=== PATIENT | female | born 2000 | race American Indian/Alaskan Native ===

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

== ENCOUNTER 2020-01-05 05:43 | Emergency (ER) | payer MEDICAID ==
[2020-01-05 05:52] VITALS: BP 143/104; PULSE 73
--- NOTE | 2020-01-05 06:33 | CR ---
PROCEDURE INFORMATION: Exam: XR Left Hand Exam date and time: 01/05/2020 6:15 AM Age: 19 years old Clinical indication: Other: Slammed in car door/pain; Additional info: Possible FX TECHNIQUE: Imaging protocol: XR Left hand. Views: 1 or 2 views. COMPARISON: No relevant prior studies available. FINDINGS: Bones/joints: Normal. Soft tissues: Normal. IMPRESSION: No acute findings.
--- NOTE | 2020-01-05 06:40 | EDM.PDOC ---
ED HPI GENERAL MEDICAL PROBLEM - General Chief Complaint: Upper Extremity Injury/Pain Stated Complaint: HAND BROKEN Time Seen by Provider: 01/05/20 06:25 Source of Information: Reports: Patient, RN, RN Notes Reviewed History Limitations: Reports: No Limitations - History of Present Illness INITIAL COMMENTS - FREE TEXT/NARRATIVE: Patient presents to ER with complaint of left hand pain. States she slammed her hand in a car door about 4:30 this morning. Patient is able to wiggle her fingers. CMS is good. Mild swelling to the top of the left hand. 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 Musculoskeletal 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: None, Other (See Below) Other Musculoskeletal History: LEFT shoulder rotator cuff Neurological 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: None Psychiatric 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: Depression, Suicide Attempt Endocrine/Metabolic 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: None Hematologic 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: Anemia Immunologic 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: None Oncologic (Cancer) 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: None Dermatologic 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: None - Infectious Disease History Infectious Disease 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: None - Past Surgical History Head Surgeries/Procedures: Reports: None Cardiovascular Surgical 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: None Respiratory Surgical 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: None Female Surgical 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: None - History Comment History Comment: Has a PMH of obesity, bipolar disorder, and PTSD. Social & Family History - Family History Family Medical History: Noncontributory - Tobacco Use Smoking Status *Q: Light Tobacco Smoker Years of Tobacco use: 1 Packs/Tins Daily: 0.1 - Caffeine Use Caffeine Use: Reports: None - Recreational Drug Use Recreational Drug Use: No - Living Situation & Occupation Living situation: Reports: with Family, Single Occupation: Student Review of Systems - Review of Systems Review Of Systems: Comprehensive ROS is negative, except as noted in HPI. ED EXAM, GENERAL - Physical Exam Exam: See Below Exam Limited By: No Limitations General Appearance: Alert, WD/WN, No Apparent Distress Eye Exam: Bilateral Eye: EOMI, Normal Inspection Ears: Normal External Exam, Hearing Grossly Normal Nose: Normal Inspection Throat/Mouth: Normal Inspection, Normal Voice, No Airway Compromise Head: Atraumatic, Normocephalic Neck: Normal Inspection, Supple, Non-Tender, Full Range of Motion Respiratory/Chest: No Respiratory Distress, Lungs Clear, Normal Breath Sounds, No Accessory Muscle Use, Chest Non-Tender Cardiovascular: Normal Peripheral Pulses, Regular Rate, Rhythm, No Edema, No Gallop, No JVD, No Murmur, No Rub Peripheral Pulses: 2+: Radial (L), Radial (R) GI/Abdominal: Normal Bowel Sounds, Soft, Non-Tender (Female) Exam: Deferred Rectal (Female) Exam: Deferred Back Exam: Normal Inspection, Full Range of Motion, NT Extremities: Normal Inspection, Normal Range of Motion, Non-Tender, No Pedal Edema, Normal Capillary Refill, Joint Swelling (left hand), Other (left hand pain) Neurological: Alert, Oriented, CN II-XII Intact, Normal Cognition, Normal Gait, Normal Reflexes, No Motor/Sensory Deficits Psychiatric: Normal Affect, Normal Mood Skin Exam: Warm, Dry, Intact, Normal Color, No Rash, Other (swelling to top of left hand) Lymphatic: No Adenopathy Course - Vital Signs Last Recorded V/S: Last Vital Signs Temp 98.4 F 01/05/20 05:51 Pulse 73 01/05/20 05:51 Resp 16 01/05/20 05:51 BP 143/104 H 01/05/20 05:51 Pulse Ox 100 01/05/20 05:51 - Radiology Interpretation Free Text/Narrative:: Left hand xray: PROCEDURE INFORMATION: Exam: XR Left Hand Exam date and time: 01/05/2020 6:15 AM Age: 19 years old Clinical indication: Other: Slammed in car door/pain; Additional info: Possible FX TECHNIQUE: Imaging protocol: XR Left hand. Views: 1 or 2 views. COMPARISON: No relevant prior studies available. FINDINGS: Bones/joints: Normal. Soft tissues: Normal. IMPRESSION: No acute findings. Thank you for allowing us to participate in the care of your patient. Dictated and Authenticated by: Lex Montoya MD 01/05/2020 6:32 AM Central Time ([place] & [place]) See rad report Departure - Departure Time of Disposition: 06:38 Disposition: Home, Self-Care 01 Condition: Good Clinical Impression: Contusion of left hand Qualifiers: Encounter type: initial encounter Qualified Code(s): S60.222A - Contusion of left hand, initial encounter - Discharge Information *PRESCRIPTION DRUG MONITORING PROGRAM REVIEWED*: No *COPY OF PRESCRIPTION DRUG MONITORING REPORT IN PATIENT ABBY: No Instructions: Hand Contusion, [id number] Forms: ED Department Discharge Additional Instructions: May use Tylenol and/or ibuprofen as directed for pain Ice the area as tolerated Follow-up with your primary care provider if no improvement in 2 weeks May use a compression brace if you would like, [id number] from [facility] Sepsis Event Note (ED) - Evaluation Sepsis Screening Result: No Definite Risk - Focused Exam Vital Signs: Vital Signs Temp Pulse Resp BP Pulse Ox 01/05/20 05:51 98.4 F 73 16 143/104 H 100
== END 2020-01-05 06:42 | disposition home or self-care (01) ==
LOC: DL.ED 05:43
DX: S60.222A Contusion of left hand, initial encounter (principal); F17.210 Nicotine dependence, cigarettes, uncomplicated; W23.0XXA Caught, crushed, jammed, or pinched between moving objects, initial encounter
CPT/HCPCS: 73120-LT; 99283-25

== ENCOUNTER 2020-05-29 00:48 | Emergency (ER) | payer MEDICAID ==
[2020-05-29] MEDS ORDERED: Ondansetron 4 MG/2 ML SDV IVPUSH ONE (00:50)
[2020-05-29] MEDS ORDERED: Sodium Chloride 0.9% 1,000 ML IV ONE (01:11)
[2020-05-29 01:29] LABS: ANION GAP 15.7 mEq/L (7-13); CHLORIDE,CL 104 mmol/L (98-107); SODIUM,NA 138 mmol/L (136-145)
--- NOTE | 2020-05-29 01:35 | EDM.PDOC ---
ED HPI GENERAL MEDICAL PROBLEM - General Chief Complaint: Gastrointestinal Problem Stated Complaint: CANT KEEP FOOD DOWN Time Seen by Provider: 05/29/20 01:00 Source of Information: Reports: Patient, RN History Limitations: Reports: No Limitations - History of Present Illness INITIAL COMMENTS - FREE TEXT/NARRATIVE: ED with c/o nausea vomiting x 3 today, one time yesterday. LMP 04/09. Positive at [facility]. Tried to see OB but nothing available. Did not report nausea / vomiting when called for appointment. Dizzy tonight. No fever or chills. no diarrhea. Smell of foods make nausea worse. No morning sickness with first . - Related Data Allergies Allergy/AdvReac Type Severity Reaction Status Date / Time No Known Allergies Allergy Verified 05/29/20 01:04 Home Meds: Home Meds . 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 Musculoskeletal 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: None, Other (See Below) Other Musculoskeletal History: LEFT shoulder rotator cuff Neurological 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: None Psychiatric 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: Depression, Suicide Attempt Endocrine/Metabolic 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: None Hematologic 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: Anemia Immunologic 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: None Oncologic (Cancer) 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: None Dermatologic 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: None - Infectious Disease History Infectious Disease 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: None - Past Surgical History Head Surgeries/Procedures: Reports: None Cardiovascular Surgical 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: None Respiratory Surgical 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: None Female Surgical 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: None - History Comment History Comment: Has a PMH of obesity, bipolar disorder, and PTSD. Social & Family History - Family History Family Medical History: No Pertinent Family History - Tobacco Use Tobacco Use Status *Q: Light Tobacco User Years of Tobacco use: 1 Packs/Tins Daily: 1 - Caffeine Use Caffeine Use: Reports: Soda - Recreational Drug Use Recreational Drug Use: Yes Drug Use in Last 12 Months: Yes Recreational Drug Type: Reports: Marijuana/Hashish Recreational Drug Use Frequency: Binges - Living Situation & Occupation Living situation: Reports: with Family, Single Occupation: Student ED ROS GENERAL - Review of Systems Review Of Systems: Comprehensive ROS is negative, except as noted in HPI. ED EXAM, GI/ABD - Physical Exam Exam: See Below Exam Limited By: No Limitations General Appearance: Alert, No Apparent Distress, Obese Eyes: Bilateral: EOMI Ears: Normal External Exam Nose: Normal Inspection Throat/Mouth: Normal Inspection, Normal Voice Head: Atraumatic, Normocephalic Neck: Normal Inspection Respiratory/Chest: No Respiratory Distress, Lungs Clear, Normal Breath Sounds Cardiovascular: Normal Peripheral Pulses, Regular Rate, Rhythm GI/Abdominal Exam: Normal Bowel Sounds, Soft, Non-Tender Extremities: Normal Inspection Neurological: Alert, Normal Cognition Psychiatric: Normal Affect, Normal Mood Skin Exam: Warm, Dry, Intact, Normal Color Course - Vital Signs Last Recorded V/S: Last Vital Signs Temp 97.8 F 05/29/20 02:17 Pulse 89 05/29/20 02:17 Resp 16 05/29/20 02:17 BP 116/75 05/29/20 02:17 Pulse Ox 99 05/29/20 02:17 - Orders/Labs/Meds Orders: Active Orders 24 hr Category Date Time Status CULTURE URINE [RM] Stat Lab 05/29/20 01:09 Received Labs: Laboratory Tests 05/29/20 05/29/20 05/29/20 Range/Units 00:58 00:58 01:09 WBC 10.3 H (5.0-10.0) 10^3/uL RBC 4.97 (4.2-5.4) 10^6/uL Hgb 13.1 (12.0-16.0) g/dL Hct 38.4 (37.0-47.0) % MCV 77.3 L (80-100) fL MCH 26.4 L (27.0-34.0) pg MCHC 34.1 (33.0-35.0) g/dL Plt Count 351 (150-450) 10^3/uL Neut % (Auto) 61.8 (42.2-75.2) % Lymph % (Auto) 28.3 (20.5-50.1) % Terry % (Auto) 8.1 H (2-8) % Eos % (Auto) 1.4 (1.0-3.0) % Baso % (Auto) 0.4 (0.0-1.0) % Sodium 138 (136-145) mmol/L Potassium 3.7 (3.5-5.1) mmol/L Chloride 104 (98-107) mmol/L Carbon Dioxide 22 (21-32) mmol/L Anion Gap 15.7 H (7-13) mEq/L BUN 9 (7-18) mg/dL Creatinine 0.63 (0.55-1.02) mg/dL Est Cr Clr Drug Dosing 128.17 mL/min Estimated GFR (MDRD) > 60 BUN/Creatinine Ratio 14.3 (No establ ref range) Glucose 107 H (74-99) mg/dL Calcium 8.8 (8.5-10.1) mg/dL Total Bilirubin 0.3 (0.2-1.0) mg/dL AST 41 H (15-37) U/L ALT 53 (14-59) U/L Alkaline Phosphatase 76 (46-116) U/L Total Protein 6.8 (6.4-8.2) g/dL Albumin 3.6 (3.4-5.0) g/dL Globulin 3.2 Albumin/Globulin Ratio 1.1 HCG, Qual Positive Urine Color Yellow (YELLOW) Urine Appearance Turbid (CLEAR) Urine pH 6.0 (5.0-9.0) Ur Specific Ney >= 1.030 (1.005-1.030) Urine Protein Negative (NEGATIVE) Urine Glucose (UA) Negative (NEGATIVE) Urine Ketones Trace H (NEGATIVE) Urine Occult Blood Trace-intact H (NEGATIVE) Urine Nitrite Negative (NEGATIVE) Urine Bilirubin Negative (NEGATIVE) Urine Urobilinogen 1.0 (0.2-1.0) mg/dL Ur Leukocyte Esterase Small H (NEGATIVE) Urine RBC 0-5 /HPF Urine WBC 50-75 H (0-5/HPF) /HPF Ur Epithelial Cells Many H (NOT SEEN) /HPF Amorphous Sediment Few (NOT SEEN) /HPF Urine Bacteria Moderate H (0-FEW/HPF) /HPF Urine Mucus Many H (NOT SEEN) /LPF Meds: Medications Discontinued Medications Generic Name Dose Route Start Last Admin Trade Name Freq PRN Reason Stop Dose Admin Sodium Chloride 1,000 mls @ 999 mls/hr 05/29/20 01:11 05/29/20 01:13 Normal Saline IV 05/29/20 02:11 999 mls/hr .BOLUS ONE Administration Ondansetron HCl 4 mg 05/29/20 00:50 05/29/20 01:03 Zofran IVPUSH 05/29/20 00:51 4 mg ONETIME ONE Administration Departure - Departure Time of Disposition: 02:14 Disposition: Home, Self-Care 01 Condition: Good Clinical Impression: First trimester , Hyperemesis - Discharge Information *PRESCRIPTION DRUG MONITORING PROGRAM REVIEWED*: No *COPY OF PRESCRIPTION DRUG MONITORING REPORT IN PATIENT ABBY: No Instructions: First Trimester of , [id number], Nausea and Vomiting, Adult, [id number] Forms: ED Department Discharge Additional Instructions: Follow up in clinic this week if continued nausea/ vomiting small sips liquid more frequently avoid strong odors over counter Unisom 1/2 tablet at bedtime as needed for nausea or from pharmacy- pyridoxine 10mg every 12 hours as needed for nausea Doxylamine 10mg at bedtime as needed for nausea Sepsis Event Note (ED) - Evaluation Sepsis Screening Result: No Definite Risk - Focused Exam Vital Signs: Vital Signs Temp Pulse Resp BP Pulse Ox 05/29/20 02:17 97.8 F 89 16 116/75 99 05/29/20 00:57 97.1 F 80 18 136/90 100 - My Orders Last 24 Hours: My Active Orders 05/29/20 01:09 CULTURE URINE [RM] Stat - Assessment/Plan Last 24 Hours: My Active Orders 05/29/20 01:09 CULTURE URINE [RM] Stat
[2020-05-29 02:18] VITALS: BP 116/75; PULSE 89
== END 2020-05-29 02:25 | disposition home or self-care (01) ==
LOC: DL.ED 00:48
DX: O21.0 Mild hyperemesis gravidarum (principal); Z72.0 Tobacco use
CPT/HCPCS: 36415; 80053; 81001; 84703; 85025; 87086; 96374; 99284; J2405; J7030; 99283

== ENCOUNTER 2020-11-09 15:30 | Observation (INO) | payer MEDICAID ==
[2020-11-09] MEDS ORDERED: Sodium Chloride 0.9% 10 ML Syringe FLUSH PRN (16:42)
[2020-11-09] MEDS ORDERED: Betamethasone Acetate/Betamethasone Sod Phosphate 30 MG/5 ML MDV IM SCH (16:45)
[2020-11-09] MEDS ORDERED: Sodium Chloride 0.9% 1,000 ML IV SCH ×2 (16:45)
--- NOTE | 2020-11-09 16:51 | PCM.LDHP ---
L&D History of Present Illness - General Date of Service: 11/09/20 Admit Problem/Dx: Patient Status Order with Admit Dx/Problem 11/09/20 16:41 Patient Status [ADT] Routine Admission Diagnosis/Problem Admission Diagnosis/Problem care in third trimester - History of Present Illness Introduction:: 20-year-old at 31w1d presents with increased contractions since 1000 this morning. She states that they were initially 30 minutes apart but then increased in frequency. Currently, they are about 4 minutes apart. She rates them as moderate in intensity. Baby has been active. She has some increase vaginal discharge/leaking today as well. No fever or chills. No new headache or vision changes. Wet prep and urinalysis were unremarkable. Amnisure was negative. We are unable to perform an FFN as patient has had intercourse in the past 24 hours. has been complicated by diet-controlled gestational diabetes, Chlamydia infection (treated) and anemia in . - Related Data Allergies/Adverse Reactions: Allergies Allergy/AdvReac Type Severity Reaction Status Date / Time No Known Allergies Allergy Verified 10/08/20 04:47 Home Medications: Home Meds Pnv,Calcium 72/Iron,Carb/Folic [ Plus Iron Tablet] 1 tab PO DAILY 05/29/20 [History] Ferrous Sulfate [Iron] 325 mg PO DAILY 10/08/20 [History] Ascorbate Calcium [Vitamin C] 500 mg PO DAILY 11/09/20 [History] Past Medical History - Past Health History Medical/Surgical History: Denies Medical/Surgical History HEENT 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: Impaired Vision Cardiovascular 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: None Respiratory 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: None Gastrointestinal 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: None Genitourinary 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: None SEO CONSULTANT 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: , Therapeutic Musculoskeletal 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: None, Other (See Below) Other Musculoskeletal History: LEFT shoulder rotator cuff Neurological 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: None Psychiatric 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: Depression, Suicide Attempt Endocrine/Metabolic 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: Diabetes, Gestational Hematologic 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: Anemia Immunologic 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: None Oncologic (Cancer) 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: None Dermatologic 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: None - Infectious Disease History Infectious Disease 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: None - Past Surgical History Head Surgeries/Procedures: Reports: None Cardiovascular Surgical 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: None Respiratory Surgical 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: None Female Surgical 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: None - History Comment History Comment: Has a PMH of obesity, bipolar disorder, and PTSD. Social & Family History - Family History Family Medical History: No Pertinent Family History - Tobacco Use Tobacco Use Status *Q: Never Tobacco User Second Hand Smoke Exposure: No - Caffeine Use Caffeine Use: Reports: Soda - Recreational Drug Use Recreational Drug Use: No - Living Situation & Occupation Living situation: Reports: with Family, Single Occupation: Student H&P Review of Systems - Review of Systems: Review Of Systems: See Below General: Reports: No Symptoms HEENT: Reports: No Symptoms Pulmonary: Reports: No Symptoms Cardiovascular: Reports: No Symptoms Gastrointestinal: Reports: No Symptoms Musculoskeletal: Reports: No Symptoms Skin: Reports: No Symptoms Psychiatric: Reports: No Symptoms Neurological: Reports: No Symptoms L&D Exam - Exam Exam: See Below - Vital Signs Vital Signs: Last Vital Signs Temp 36.5 C 11/09/20 15:45 Pulse 83 11/09/20 15:45 Resp 20 11/09/20 15:45 BP 115/65 11/09/20 15:45 Pulse Ox Weight: 1012.418 kg - OB Specific Contraction Intensity: Mild to Moderate Movement: Active Heart Tones: Present Heart Tones per Min: 135 Heart Rate (FHR) Variability: Moderate (6-25 bmp) Presentation: Vertex - Mora Score Mora Score Cervix Position: Posterior Mora Score Consistency: Soft Mora Score Effacement: 0-30% Mora Score Dilation: 1-2 cm Mora Score 's Station: -3 Mora Score Total: 3 - Exam General: Alert, Oriented HEENT: Conjunctiva Clear Lungs: Clear to Auscultation, Normal Respiratory Effort Cardiovascular: Regular Rate, Regular Rhythm Genitourinary: Normal external exam Back Exam: Normal Inspection Extremities: Normal Inspection, No Pedal Edema Skin: Warm, Dry, Intact - Patient Data Lab Results Last 24 hrs: Laboratory Results - last 24 hr 11/09/20 11/09/20 Range/Units 15:45 15:58 Urine Color Yellow (YELLOW) Urine Appearance Clear (CLEAR) Urine pH 7.0 (5.0-9.0) Ur Specific [place] 1.020 (1.005-1.030) Urine Protein Negative (NEGATIVE) Urine Glucose (UA) Negative (NEGATIVE) Urine Ketones Negative (NEGATIVE) Urine Occult Blood Negative (NEGATIVE) Urine Nitrite Negative (NEGATIVE) Urine Bilirubin Negative (NEGATIVE) Urine Urobilinogen 0.2 (0.2-1.0) mg/dL Ur Leukocyte Esterase Moderate H (NEGATIVE) Membrane Rupture Negative (NEG) Hal Results Last 24 hrs: Microbiology 11/09/20 15:45 Wet Prep - Final Vagina - Problem List (1) uterine contractions in third trimester, antepartum SNOMED Code(s): 693016796, 645893378 ICD Code: O47.03 - FALSE LABOR BEFORE 37 COMPLETED WEEKS OF GEST, THIRD TRI Status: Acute Current Visit: Yes (2) Gestational diabetes mellitus SNOMED Code(s): 58109436 ICD Code: O24.419 - GESTATIONAL DIABETES MELLITUS IN , UNSP CONTROL Status: Acute Current Visit: Yes (3) Chlamydia infection affecting in third trimester SNOMED Code(s): 2652584163084 ICD Code: O98.813 - OTH MATERNAL INFEC/PARASTC DISEASES COMP PREG, THIRD TRI; A74.9 - CHLAMYDIAL INFECTION, UNSPECIFIED Status: Acute Current Visit: Yes (4) Anemia affecting in third trimester SNOMED Code(s): 37370414, 00353002 ICD Code: O99.013 - ANEMIA COMPLICATING , THIRD TRIMESTER Status: Acute Current Visit: Yes Problem List Initiated/Reviewed/Updated: Yes Orders Last 24hrs: Active Orders 24 hr Category Date Time Status Patient Status [ADT] Routine ADT 11/09/20 16:41 Ordered Communication Order [RC] ROUTINE Care 11/09/20 16:45 Ordered NST [ Non Stress Test] [RC] PER UNIT ROUTINE Care 11/09/20 15:31 Active POC Labs [RC] ASDIRECTED Care 11/09/20 16:41 Ordered Peripheral IV Care [RC] . DIRECTED Care 11/09/20 16:42 Ordered Vital Signs [RC] PER UNIT ROUTINE Care 11/09/20 16:41 Ordered Regular Diet [DIET] Diet 11/09/20 Dinner Ordered CULTURE URINE [RM] Urgent Lab 11/09/20 15:45 Received UA W/MICROSCOPIC [URIN] Urgent Lab 11/09/20 15:45 Results Betamet Acet/Betamet Na Phos [[place] Soluspan 6 MG/ Med 11/09/20 16:45 Ordered ML] 12 mg IM DAILY Sodium Chloride 0.9% @ 125 MLS/HR (1000ml) Med 11/09/20 16:45 Ordered Sodium Chloride 0.9% [Normal Saline] 1,000 ml IV ASDIRECTED Sodium Chloride 0.9% [Normal Saline] 1,000 ml Med 11/09/20 16:45 Ordered IV .BOLUS Sodium Chloride 0.9% [Saline Flush] Med 11/09/20 16:42 Ordered 10 ml FLUSH ASDIRECTED PRN Peripheral IV Insertion Adult [OM.PC] Urgent Oth 11/09/20 16:41 Ordered Resuscitation Status Routine Resus Stat 11/09/20 16:41 Ordered Assessment/Plan Comment:: 20-year-old at 31w1d with contractions 1. Will obtain GBS and STD screen 2. Will give LR 1 liter bolus followed by maintenance fluids at 125 ml/hr 3. Betamethasone for lung maturity 4. Will monitor contractions and repeat cervical exam in 2 hours. If she has made change, will start indomethacin and magnesium with planned transfer to [facility]. This was discussed with the patient and her significant other, and all questions were answered. Dr. Porsha To MD
[2020-11-09] MEDS ORDERED: Lactated Ringers 1,000 ML IV ONE (16:55)
[2020-11-09] MEDS ORDERED: Lactated Ringers 1,000 ML IV SCH (17:00)
[2020-11-09] MEDS ORDERED: Indomethacin 25 MG Cap PO STA (18:34)
[2020-11-09] MEDS ORDERED: Magnesium Sulfate/Water 4 GM in Premix Bag 1 BAG IV ONE (18:35)
[2020-11-09] MEDS ORDERED: Penicillin G Potassium 5 MILLUNITS in Sodium Chloride 0.9% 100 ML IV STA (18:49)
--- NOTE | 2020-11-09 18:59 | PCM.DCSUM1 ---
Discharge Summary - Hospital Course Free Text/Narrative:: 20-year-old admitted for observation for possible contractions/labor Diagnosis: Stroke: No - Discharge Data Discharge Date: 11/09/20 Discharge Disposition: DC/Tfer to Acute Hospital 02 Condition: Good - Referral to Home Health Primary Care Physician: Kendal To MD - Discharge Diagnosis/Problem(s) (1) uterine contractions in third trimester, antepartum SNOMED Code(s): 952964105, 617819444 ICD Code: O47.03 - FALSE LABOR BEFORE 37 COMPLETED WEEKS OF GEST, THIRD TRI Status: Acute Current Visit: Yes (2) Gestational diabetes mellitus SNOMED Code(s): 31319210 ICD Code: O24.419 - GESTATIONAL DIABETES MELLITUS IN , UNSP CONTROL Status: Acute Current Visit: Yes (3) Chlamydia infection affecting in third trimester SNOMED Code(s): 1102212710837 ICD Code: O98.813 - OTH MATERNAL INFEC/PARASTC DISEASES COMP PREG, THIRD TRI; A74.9 - CHLAMYDIAL INFECTION, UNSPECIFIED Status: Acute Current Visit: Yes (4) Anemia affecting in third trimester SNOMED Code(s): 20012886, 37940687 ICD Code: O99.013 - ANEMIA COMPLICATING , THIRD TRIMESTER Status: Acute Current Visit: Yes - Discharge Plan Home Medications: Home Meds Pnv,Calcium 72/Iron,Carb/Folic [ Plus Iron Tablet] 1 tab PO DAILY 05/29/20 [History] Ferrous Sulfate [Iron] 325 mg PO DAILY 10/08/20 [History] Ascorbate Calcium [Vitamin C] 500 mg PO DAILY 11/09/20 [History] - Discharge Summary/Plan Comment DC Time >30 min.: No Discharge Summary/Plan Comment: Patient's cervix was rechecked. Cervical change from 2.5 to 3/3.5 cm noted, 25% effacement, high. Contractions have spaced out to 5-7 minutes apart. Patient feels that these are not any stronger than they were previously. Due to cervical change, [facility] at [facility] in [place] was contacted, and Dr. Carreno agreed to accept transfer. Patient was given 100 mg indomethacin. 4 gram loading dose of IV magnesium sulfate was started for neuroprotection. Patient will also be started on PCN for GBS unknown status. Patient will be transferred via ground ambulance. - General Info Date of Service: 11/09/20 - Patient Data Vitals - Most Recent: Last Vital Signs Temp 35.9 C L 11/09/20 17:30 Pulse 83 11/09/20 15:45 Resp 20 11/09/20 17:30 BP 123/76 11/09/20 17:30 Pulse Ox Weight - Most Recent: 1012.418 kg Lab Results - Last 24 hrs: Laboratory Results - last 24 hr 11/09/20 11/09/20 Range/Units 15:45 15:58 Urine Color Yellow (YELLOW) Urine Appearance Clear (CLEAR) Urine pH 7.0 (5.0-9.0) Ur Specific [place] 1.020 (1.005-1.030) Urine Protein Negative (NEGATIVE) Urine Glucose (UA) Negative (NEGATIVE) Urine Ketones Negative (NEGATIVE) Urine Occult Blood Negative (NEGATIVE) Urine Nitrite Negative (NEGATIVE) Urine Bilirubin Negative (NEGATIVE) Urine Urobilinogen 0.2 (0.2-1.0) mg/dL Ur Leukocyte Esterase Moderate H (NEGATIVE) Urine RBC 0-5 /HPF Urine WBC 10-20 H (0-5/HPF) /HPF Ur Epithelial Cells Many H (NOT SEEN) /HPF Urine Bacteria Many H (0-FEW/HPF) /HPF Urine Mucus Few H (NOT SEEN) /LPF Membrane Rupture Negative (NEG) YESENIA Results - Last 24 hrs: Microbiology 11/09/20 15:45 Wet Prep - Final Vagina Med Orders - Current: Current Medications Betamethasone Acet/Betameth SodPhos (Betamethasone Acetate/Betamethasone Sod Phosphate 30 Mg/5 Ml Mdv) 12 mg IM DAILY REJI Stop: 11/10/20 19:00 Last Admin: 11/09/20 16:58 Dose: 2 ml Documented by: Lactated Ringer's (Ringers, Lactated) 1,000 mls @ 125 mls/hr IV ASDIRECTED REJI Last Admin: 11/09/20 17:30 Dose: 125 mls/hr Documented by: Penicillin G Potassium 5 (millunits/ Sodium Chloride) 100 mls @ 200 mls/hr IV ONETIME STA Stop: 11/09/20 19:18 Magnesium Sulfate (Magnesium Sulfate In Water 20 Gm/500 Ml) 20 gm in 500 mls @ 50 mls/hr IV ASDIRECTED REJI Sodium Chloride (Sodium Chloride 0.9% 10 Ml Syringe) 10 ml FLUSH ASDIRECTED PRN PRN Reason: Keep Vein Open Discontinued Medications Sodium Chloride (Normal Saline) 1,000 mls @ 500 mls/hr IV .BOLUS REJI Sodium Chloride (Normal Saline) 1,000 mls @ 125 mls/hr IV ASDIRECTED REJI Lactated Ringer's (Ringers, Lactated) 1,000 mls @ 999 mls/hr IV .BOLUS ONE Stop: 11/09/20 17:55 Last Admin: 11/09/20 17:00 Dose: 999 mls/hr Documented by: Magnesium Sulfate 4 gm/ Premix 100 mls @ 300 mls/hr IV ONETIME ONE Stop: 11/09/20 18:54 Last Admin: 11/09/20 18:51 Dose: 300 mls/hr Documented by: Indomethacin (Indomethacin 25 Mg Cap) 100 mg PO ONETIME STA Stop: 11/09/20 18:35 Last Admin: 11/09/20 18:49 Dose: 100 mg Documented by:
[2020-11-09] MEDS ORDERED: Magnesium Sulfate/Water 20 GM/500 ML BAG IV SCH (19:00)
[2020-11-09 22:13] VITALS: BP 97/54; PULSE 80
[2020-11-11 11:47] LABS: C.TRACHOMATIS BY TMA Negative (Negative); N.GONORRHOEAE BY TMA Negative (Negative)
== END 2020-11-09 21:07 ==
LOC: DL.OBCHECK 15:30 → DL.OB 16:41
PROVIDERS: ADMIT Family Medicine; ATTEND Family Medicine
DX: O47.03 False labor before 37 completed weeks of gestation, third trimester (principal); O24.419 Gestational diabetes mellitus in pregnancy, unspecified control; O98.813 Other maternal infectious and parasitic diseases complicating pregnancy, third trimester; O99.013 Anemia complicating pregnancy, third trimester; Z3A.31 31 weeks gestation of pregnancy; Z79.899 Other long term (current) drug therapy; Z20.822 Contact with and (suspected) exposure to COVID-19
CPT/HCPCS: 51702; 59025; 81001; 84112; 87077; 87081; 87086; 87186; 87210; 87491; 87591; 96365; 96368; 96372; 96376; A9270-GY; G0378; J0702; J2540; J3475; J7120; U0002

== ENCOUNTER 2020-12-18 16:50 | Inpatient (IN) | payer MEDICAID ==
--- NOTE | 2020-12-18 18:33 | OBOUT ---
DATE: 12/18/2020 This is an NST report. heart monitoring: heart rate baseline 140 BPM, moderate variability, accelerations present, no decelerations noted. [place]: No contractions. Uterine irritability present. INTERPRETATION: Category 1 strip, reactive NST. NST interpretation under advisement of Dr. Preston Montes. [facility] /[id number]
--- NOTE | 2020-12-18 18:59 | HP ---
This is a triage H and P for rule out labor. HISTORY OF PRESENT ILLNESS: The patient is a 20-year-old, 3, para 1 female at 36 weeks 5 days' gestation today, coming in with concerns of vaginal pressure. The patient states that starting last night, she had a "weird feeling" in her pelvis. She reports "I am having the same feelings that I had when I wanted to push with my first child." She also endorses abdominal tightening with these episodes, but no pain or cramping sensations. She also endorses a slight decrease in movement this morning, but states that the baby was very active last night. She denies any associated symptoms of leakage of fluid or vaginal bleeding/discharge. She does endorse that she has been struggling to increase her fluid intake and has only had about 1 L of fluid in the last 12 to 24 hours. In regard to her tightening and pressure sensation, she reports that this is occurring 1 to 2 times every hour. She also has pressure sensation when she closes her legs or moves around which was concerning for her. Of note, the patient has been seen and evaluated quite frequently between clinic as well as for rule out labor. The patient does see and work with Dr. Porsha To in clinic and get twice weekly IV fluid infusions of a liter at a time. This is due to her chronic dehydration. MATERNAL OBSTETRICAL HISTORY: The patient's history is positive for diet- controlled gestational diabetes in current . Anemia of . Chlamydia infection second trimester with treatment to cure completed. History of labor in early third trimester x2. At these evaluations, the patient did receive betamethasone x2 as well as penicillin due to GBS carrier status. At these times, the patient was noted to have cervical dilation to 6 cm, 60%, -3 station. The patient was monitored closely multiple times with concern for labor and was given magnesium and indomethacin to help prevent labor with success. The patient has no longer experienced anymore cervical change and has made it to 36 weeks 5 days' gestation. The patient also has a significant OB history of with delayed hemorrhage requiring Methergine and 2 units of packed red blood cells with subsequent resolution. She has also had 1 spontaneous . SIGNIFICANT MEDICAL HISTORY/ SURGICAL HISTORY: This includes PTSD, bipolar disorder, acetaminophen overdose. FAMILY HISTORY: Please refer back to documentation for significant family history along with social history. OBJECTIVE: Vital Signs: Temperature 97.5 degrees Fahrenheit, blood pressure 136/78, heart rate 64 bpm. Appearance: Sitting comfortably in bed. Not in acute distress. Lungs: Clear to auscultation bilaterally. No increased work of breathing. Heart: Regular rate and rhythm. No murmurs noted. Abdomen: Soft, nontender. Gravid uterus palpated 16 cm above umbilicus. Extremities: Trace pedal edema. No clonus noted. monitoring: heart rate 140 bpm, moderate variability, accelerations present, no decelerations noted. [place]: No contractions visualized on monitor. Uterine irritability present. Interpretation: Reactive NST, category 1 strip. Pelvic exam: Cervix 6 cm dilated, 60% effacement, -3 to ballotable station. ASSESSMENT: The patient is a 20-year-old, 3, para 1 female presenting at 36 weeks 5 days' gestation with concerns of pelvic pressure and decreased movement. The patient is O positive, antibody negative, rubella nonimmune, GBS carrier status. The patient also has a known associated diagnosis of anemia in along with diet-controlled gestational diabetes. PLAN: 1. NSTs to assess status along with expectant labor management. 2. We will monitor for signs of labor. We will perform repeat cervical exam in 2 hours to assess for cervical change/ presentation of labor. The patient was seen and evaluated by myself under advisement of Dr. Preston Montes. Assessment and plan is under advisement of Dr. Montes. [facility] /[id number]
[2020-12-18] MEDS ORDERED: hydrOXYzine HCl 25 MG Tab PO ONE (19:56)
[2020-12-18] MEDS: Lactated Ringers 1,000 ML IV SCH ×2 (20:10→23:12)
[2020-12-18] MEDS ORDERED: Penicillin G Potassium 5 MILLUNITS in Sodium Chloride 0.9% 100 ML IV ONE (20:18)
[2020-12-18] MEDS ORDERED: Tranexamic Acid 1,000 MG in Sodium Chloride 0.9% 100 ML IV PRN (20:30)
[2020-12-18] MEDS ORDERED: Ondansetron 4 MG/2 ML SDV IVPUSH PRN (20:30)
[2020-12-18] MEDS ORDERED: Sodium Chloride 0.9% 10 ML Syringe FLUSH PRN (20:30)
[2020-12-18] MEDS ORDERED: Lactated Ringers 1,000 ML IV SCH (20:30)
[2020-12-18] MEDS ORDERED: Acetaminophen 325 MG Tab PO PRN (20:30)
[2020-12-18] MEDS ORDERED: Lactated Ringers 1,000 ML IV ONE (20:30)
[2020-12-18] MEDS ORDERED: Methylergonovine 0.2 MG/1 ML Amp IM PRN (20:30)
[2020-12-18] MEDS ORDERED: Oxytocin/Normal Saline 30 UNIT/500 ML BAG IV SCH (20:30)
[2020-12-18] MEDS ORDERED: Carboprost Tromethamine 250 MCG/1 ML Amp IM PRN (20:30)
[2020-12-18] MEDS ORDERED: Misoprostol 400 MCG (4 X 100 MCG TAB) RECTAL PRN (20:30)
[2020-12-18] MEDS ORDERED: Lidocaine 1% 30 ML SDV INJECT PRN (20:30)
--- NOTE | 2020-12-18 20:44 | PN ---
DATE: 12/18/2020 SUBJECTIVE: This is a 20-year-old patient at 36 weeks 5 days' gestation, admitted under observation for monitoring of possible labor. The patient reports increasing intensity and frequency of contractions now noted to be every 1 to 3 minutes with increase in intensity. The patient denies any leakage of fluid or vaginal bleeding. The patient states she is getting more uncomfortable and was trying the birthing ball and was requesting to try sitting in the tub. OBJECTIVE: Appearance: Moderately uncomfortable with contractions, but otherwise not in distress. Cervical: 6 cm, 75%, -3. Heart Monitoring: heart rate 130 bpm., moderate variability, excels, no decels. [place]: Contractions noted every 1 to 3 minutes, increase in intensity and frequency. Interpretation: Category 1 strip. ASSESSMENT: The patient is a 20-year-old female presenting with early labor. PLAN: 1. Will admit patient to Labor and Delivery for further management of early labor. 2. We will give patient 1 L of fluid bolus along with a dose of Vistaril. 3. Due to GBS positive status, we will start penicillin at this time. 4. We will admit patient for further evaluation and monitoring of routine labor. The patient was seen and evaluated by myself under advisement of Dr. Preston Montes. Assessment and plan is under advisement of Dr. Montes. [facility] /[id number]
[2020-12-18] MEDS ORDERED: fentaNYL 100 MCG/2 ML SDV ONE (21:26)
[2020-12-18] MEDS ORDERED: EPINEPHrine 1 MG/ML SDV ONE ×2 (21:27→21:28)
[2020-12-18] MEDS ORDERED: Sodium Chloride 0.9% 20 ML SDV ONE (21:28)
[2020-12-18] MEDS ORDERED: Sodium Bicarbonate 4.2% 2.5 MEQ/5 ML SDV ONE ×2 (21:28)
[2020-12-18] MEDS ORDERED: fentaNYL 100 MCG/2 ML SDV ITHECAL ONE (21:28)
--- NOTE | 2020-12-18 21:55 | PCM.SN.2 ---
- Free Text/Narrative Note: Intrathecal. Sitting position, sterile pree and drape. 1% lidocaine w bicarb for skinwheal to L2 L3 interspace, introducer, 24 ga pencan x 1. Pos CSF, neg heme neg parasthesai. 1:1000 pf epi, 20 mcg pf sufenta, 30 mcg pf fentanyl, 0.4 ml pf NS and 6 mg of 0.75% pf marcaine injected after CSF aspiration. Pt to L lateral position after 30 seconds. Procedure time 2125 to 2200
[2020-12-18] MEDS: Penicillin G Potassium 3 MILLUNITS in Sodium Chloride 0.9% 100 ML IV SCH (23:40)
[2020-12-19] MEDS ORDERED: Oxytocin/Normal Saline 30 UNIT/500 ML BAG IV SCH (00:15)
[2020-12-19] MEDS ORDERED: fentaNYL 100 MCG/2 ML SDV ONE (03:35)
[2020-12-19] MEDS ORDERED: Sodium Bicarbonate 4.2% 2.5 MEQ/5 ML SDV ONE ×2 (03:36→03:37)
[2020-12-19] MEDS ORDERED: fentaNYL 100 MCG/2 ML SDV ITHECAL ONE (03:37)
[2020-12-19] MEDS ORDERED: Sodium Chloride 0.9% 20 ML SDV ONE (03:37)
[2020-12-19] MEDS: Penicillin G Potassium 3 MILLUNITS in Sodium Chloride 0.9% 100 ML IV SCH (03:39)
--- NOTE | 2020-12-19 03:59 | PCM.SN.2 ---
- Free Text/Narrative Note: Intrathecal. Sitting position, sterile prep and drape. 1% lidocaine w bicarb for skinwheal to L2 L3 interspace, introducer, 24 ga pencan x 1. Pos CSF, neg heme neg parasthesia. 20 mcg pf sufenta, 30 mcg pf fentanyl, 0.4 ml pf NS and 6 mg of 0.75% pf marcaine injected after CSF aspiration. Pt to L lateral position af ter 30 seconds. Procedure time 0330 to 0400
[2020-12-19] MEDS ORDERED: Oxytocin 10 Units/1 ML SDV IM PRN (06:25)
[2020-12-19] MEDS ORDERED: Simethicone 80 MG Tab.Chew PO PRN (06:25)
[2020-12-19] MEDS ORDERED: Tranexamic Acid 1,000 MG in Sodium Chloride 0.9% 100 ML IV PRN (06:25)
[2020-12-19] MEDS ORDERED: Acetaminophen 325 MG Tab PO SCH (06:25)
[2020-12-19] MEDS ORDERED: Misoprostol 400 MCG (4 X 100 MCG TAB) RECTAL PRN (06:25)
[2020-12-19] MEDS ORDERED: Benzocaine/Menthol 20%-0.5% Spray 78 GM Cannister TOP PRN (06:25)
[2020-12-19] MEDS ORDERED: Ibuprofen 800 MG Tab PO SCH (06:25)
[2020-12-19] MEDS ORDERED: Sodium Chloride 0.9% 10 ML Syringe FLUSH PRN (06:25)
[2020-12-19] MEDS ORDERED: Carboprost Tromethamine 250 MCG/1 ML Amp IM PRN (06:25)
[2020-12-19] MEDS: Docusate Sodium 100 MG Cap PO PRN ×2 (08:36→21:22)
[2020-12-19] MEDS: Ferrous Sulfate 325 MG Tab PO SCH (08:36)
[2020-12-19] MEDS: Prenatal Multivitamin with Calcium/Folic Acid/Iron Tab PO SCH (08:36)
--- NOTE | 2020-12-19 09:16 | DEL ---
DATE: 12/19/2020 The patient is a 20-year-old 3, para 1 female who presented to Labor and Delivery Triage on 12/18/2020 at 36 weeks 5 days gestation with concerns of lower abdominal pain and tightening along with decreased movement. The patient was noted to be experiencing frequent contractions and was given Vistaril and IV fluids to help with onset of contractions. Please see OB Triage/H and P note for further details. After monitoring and initial management, patient was noted to have increasing frequency and intensity of contractions. The patient was admitted to the OB floor for expectant labor management. The patient is GBS positive, so penicillin was initiated. The patient progressed through labor routinely. The patient is also gestational diabetic and is diet controlled. Once the patient was noted to be in active labor, hourly glucose checks were completed. The patient was noted to progress as expected and subsequently reached a point where she desired intrathecal which was placed. After intrathecal was placed, contractions were noted to space out occurring every 4 to 5 minutes. heart tracing indicated the baby tolerated all forms of intervention well. Pitocin was then started at a rate of 2 with increase by 2 every 30 minutes with max of 20. The patient progressed and was noted to have SROM with clear fluid at 0330 hours on 12/19/2020. The patient started feeling increased pressure with intensity of contractions as intrathecal wore off. Anesthesia was notified and returned to place a second intrathecal/saddle block. The patient progressed through labor expectantly and was noted to be complete at 0450 hours. The patient pushed effectively x3 with initial delivery at 0514 hours. Head presented and was delivered in the LUCY position. Body was delivered quickly thereafter. Delayed cord clamping was practiced and initial scores were 8 and 9 at one and five minutes respectively. The patient was brought to mother's abdomen/chest to initiate bonding. With uterine massage and gentle traction, placenta delivered subsequently thereafter. Postprocedure vaginal exam indicated small bilateral labial lacerations. Direct pressure was utilized for hemostasis. No perineal lacerations or cervical lacerations were noted. Vaginal wall lacerations were not repaired as they remained hemostatic with excellent reapproximation of anatomy. Cord blood was drawn and collected for cord studies. The patient was cleaned and monitored immediately post delivery. Delivery was successful with production of an early term female born at 36 weeks 6 days' gestation via normal spontaneous vaginal delivery to a 20-year-old 3, para 1, now 2 female. Initial scores were 8 and 9 at one and five minutes respectively. weight was 3830 g. Maternal OB history of gestational diabetes, diet controlled, which remained controlled throughout labor. GBS positive status was adequately treated x3 of penicillin prior to SROM. The patient and mother were noted to be doing well immediately after delivery. EBL 150 mL. POSTPROCEDURE DIAGNOSES: 1. Status post normal spontaneous vaginal delivery with production of early term female infant at 36 weeks 6 days' gestation. 2. 3, now para 2. 3. score 8 and 9 at one and five minutes respectively. 4. GBS positive, adequately treated with penicillin x3. 5. Gestational diabetes, diet controlled. 6. ABO blood type O positive, antibody negative, rubella nonimmune. PLAN: 1. Continue routine cares. 2. We will continue to monitor clinically and closely. 3. The patient does have a history of delayed hemorrhage necessitating methargen and 2 units of packed red blood cells. We will monitor very closely after delivery. Delivery was completed by myself and Dr. Preston Montes. Delivery summary is under advisement of Dr. Montes. [facility] /[id number]
[2020-12-19] MEDS: Acetaminophen 325 MG Tab PO SCH ×2 (14:28→21:22)
[2020-12-19] MEDS: Ibuprofen 800 MG Tab PO SCH (16:25)
[2020-12-20] MEDS: Ibuprofen 800 MG Tab PO SCH ×3 (00:42→17:02)
[2020-12-20] MEDS: Acetaminophen 325 MG Tab PO SCH ×4 (06:30→20:40)
[2020-12-20] MEDS: Prenatal Multivitamin with Calcium/Folic Acid/Iron Tab PO SCH (09:03)
[2020-12-20] MEDS: Ferrous Sulfate 325 MG Tab PO SCH (09:03)
--- NOTE | 2020-12-20 10:28 | PN ---
DATE: 12/20/2020 SUBJECTIVE: The patient is a 20-year-old 3, now para 2-0-1-2 female, who delivered via at 36 weeks 6 days' gestation on 12/19/2020. The patient also has significant obstetrical conditions, including GBS positive status, adequately treated during delivery; gestational diabetes, diet controlled, has been asymptomatic; and a history of hemorrhage in prior , which has not occurred, and the patient has been asymptomatic throughout hospital course. The patient states she is feeling well but "achy." She does endorse moderate cramping, especially with . She states she is overall well, has mild lochia and bleeding. She denies fevers, chills, lightheadedness, dizziness, palpitations, difficulty breathing, or lower extremity pain or tenderness. She states that is going well. She states she is tolerating p.o. intake. She has been up and ambulating. She has had adequate urination. She also endorses passing gas and having first bowel movement overnight that she tolerated well. She has no concerns at this time. OBJECTIVE: Vital Signs: Temp 98.4 degrees Fahrenheit. HR: 82 bpm. BP: 129/76. RR: 16 breaths per minute. Oxygen saturation 98% on room air. Appearance: Sitting comfortably in bed, breast-feeding . HEENT: Within normal limits. Lungs: Clear to auscultation bilaterally. Heart: Regular rate and rhythm. No murmurs are noted. Abdomen: Soft, mildly distended, mildly tender to palpation. A firm uterus is palpated 1 cm below the umbilicus. Extremities: Trace pedal edema is noted. No calf pain or tenderness with palpation. ASSESSMENT: The patient is day 1, status post normal spontaneous vaginal delivery with delivery of an early term female infant. PLAN: 1. We will continue to monitor with routine cares. 2. Plan for discharge likely tomorrow pending status. The patient was seen and evaluated today by myself and Dr. Anshu Montes. Assessment and plan is under advisement of Dr. Montes. [facility] /[id number]
[2020-12-20] MEDS ORDERED: Measles, Mumps & Rubella Vaccine 0.5 ML SDV SUBCUT ONE (20:28)
[2020-12-21] MEDS: Acetaminophen 325 MG Tab PO SCH ×2 (05:28→11:07)
[2020-12-21] MEDS: Ibuprofen 800 MG Tab PO SCH ×2 (05:28→08:40)
[2020-12-21] MEDS: Prenatal Multivitamin with Calcium/Folic Acid/Iron Tab PO SCH (08:40)
[2020-12-21] MEDS: Ferrous Sulfate 325 MG Tab PO SCH (08:40)
[2020-12-21 12:47] VITALS: BP 127/73; PULSE 76
--- NOTE | 2020-12-22 01:23 | DISCH ---
ADMITTING DIAGNOSES: 1. Intrauterine at 36 weeks' 5 days' gestation by ultrasound. 2. Report of decreased movement prior to presentation, nonstress test reassuring and reactive. 3. Concern of pelvic pressure with contractions, subsequent progression to the patient in labor. 4. O positive, antibody negative, rubella nonimmune, group B Streptococcus positive. 5. Anemia in . 6. Diet-controlled gestational diabetes. 7. 3, para 1. DISCHARGE DIAGNOSES: 1. Intrauterine at 36 weeks' 5 days' gestation by ultrasound. 2. Report of decreased movement prior to presentation, nonstress test reassuring and reactive. 3. Concern of pelvic pressure with contractions, subsequent progression to the patient in labor. 4. O positive, antibody negative, rubella nonimmune, group B Streptococcus positive. 5. Anemia in . 6. Diet-controlled gestational diabetes. 7. 3, para 1. 8. Status post normal spontaneous vaginal delivery with product of early term female infant. 9. Delivery of early term baby girl, score 8 and 9 at one and five minutes respectively, weight 3830 g. 10.Bilateral small/superficial labial lacerations hemostatic and reapproximated without intervention. No repair needed. 11.. PROCEDURES PERFORMED: Nonstress test, labor augmentation with Pitocin, normal spontaneous vaginal delivery with small labial lacerations not necessitating repair. HISTORY OF PRESENT ILLNESS: Please see admitting H and P and delivery note for further details. SUMMARY OF HOSPITAL COURSE: The patient was admitted with the above diagnoses and underwent above procedures with subsequent spontaneous vaginal delivery of an early term female infant. score 8 and 9 at one and five minutes respectively. weight 3830 g. Please see delivery note for further details. day #1, please see progress note from that date for further details. The patient has been noted to do well in the period. day #2, day of discharge, the patient was tolerating p.o. intake, ambulating well, urinating, passing flatus, and having regular bowel movements as appropriate. The patient is well. The patient endorses mild lochia with moderate cramping that is tolerable with [id number] medications. The patient has no further concerns. The patient is doing well and appropriate for discharge, but was noted to have decreased birthweight -9.6% from weight. The patient's also has hyperbilirubinemia of . High intermediate risk bilirubin of 6.9, which increased to 11.4 on day of life #2. Cutoff for phototherapy is 11.5, so due to concomitant elevated bilirubin as well as decreased birthweight in an early term breast-feeding , it was recommended that the patient stay for phototherapy. Thought the patient can be discharged, but is able to come and go and stay with as able. PHYSICAL EXAMINATION: Vital Signs: Temp 98.6 degrees Fahrenheit, HR 76 bpm, BP 127/73, RR 16 breaths per minute. Lungs: Clear to auscultation bilaterally. Heart: Regular rate and rhythm. No murmurs noted. Abdomen: Soft, mildly distended. Firm uterus palpated 1 cm below umbilicus. Extremities: Trace peripheral edema. No calf pain or tenderness noted with palpation. LABORATORY DATA: Lab values from day 1 include hemoglobin of 9.4 down from 10.5 prior to delivery. Postdelivery hematocrit was 29.4 and platelet count 267. Blood sugars remained stable throughout labor and delivery. COVID negative. DISCHARGE DISPOSITION: Good. DISCHARGE INSTRUCTIONS: Diet: As tolerated. Activity: No lifting more than 20 pounds. No sit-ups or straining. Pelvic rest for 6 weeks with immediate return to fertility discussed at 6-week visit. Red flag symptoms that would prompt urgent re-evaluation include, but are not limited to, temperature greater than 100.4, foul-smelling discharge, red hot tender breasts, increased vaginal bleeding. DISCHARGE MEDICATIONS: 1. [id number] Tylenol and ibuprofen for pain, alternating as needed. 2. vitamin. 3. Iron. FOLLOWUP: Please follow up in clinic with Dr. Porsha To at 6 weeks for 6-week visit. Please see discharge paperwork for further details regarding discharge. The patient was seen and evaluated today by myself and Dr. Porsha To. Assessment and plan is under advisement of Dr. To. [facility] /[id number]
== END 2020-12-21 16:30 | disposition home or self-care (01) | DRG 807 ==
LOC: DL.OBCHECK 16:50 → DL.OB 19:52
PROVIDERS: ADMIT Family Medicine; ATTEND Family Medicine
PROC: 10E0XZZ Delivery of Products of Conception, External Approach (ICD-10-PCS; principal; 2020-12-18)
PROC: 4A1HXCZ Monitoring of Products of Conception, Cardiac Rate, External Approach (ICD-10-PCS; 2020-12-18)
PROC: 3E0R3BZ Introduction of Anesthetic Agent into Spinal Canal, Percutaneous Approach (ICD-10-PCS; 2020-12-18)
DX: O99.824 Streptococcus B carrier state complicating childbirth (principal); Z37.0 Single live birth; Z3A.36 36 weeks gestation of pregnancy; O24.420 Gestational diabetes mellitus in childbirth, diet controlled; O70.0 First degree perineal laceration during delivery; O99.02 Anemia complicating childbirth; D64.9 Anemia, unspecified; Z20.822 Contact with and (suspected) exposure to COVID-19
CPT/HCPCS: 01967; 36415; 51701; 59025; 59409; 82947; 85027; 86850; 86900; 86901; 90471; 90707; A9270-GY; J0171; J2405; J2540; J2590; J3010; J7120; U0002

== ENCOUNTER 2021-04-09 22:50 | Emergency (ER) | payer MEDICAID ==
[2021-04-09] MEDS ORDERED: Activated Charcoal/Water Susp 50 GM/240 ML Tube PO ONE (22:55)
--- NOTE | 2021-04-09 23:32 | EDM.PDOCBH ---
ED HPI GENERAL MEDICAL PROBLEM - General Stated Complaint: AMBULANCE Time Seen by Provider: 04/09/21 23:05 Source of Information: Reports: Patient History Limitations: Reports: No Limitations - History of Present Illness INITIAL COMMENTS - FREE TEXT/NARRATIVE: This 20 yo female patient was brought to the ED by [facility] due to an overdose on Tylenol. EMS reported that the patient took 100 Tylenol (500 mg) tablets tonight at about 2200 with the intent to harm herself. The patient has 2 children and has had relationship difficulties over the past weeks. This patient has been seen several times for intentional overdoses in the past. The patient did have a suicide note brought with EMS. Onset: Today Duration: Constant Location: Reports: Abdomen Quality: Reports: Other Severity: Moderate Improves with: Reports: None Worsens with: Reports: None Context: Reports: Other Associated Symptoms: Reports: Nausea/Vomiting headache Pain Score (Numeric/FACES): 5 - Related Data Allergies Allergy/AdvReac Type Severity Reaction Status Date / Time No Known Allergies Allergy Verified 04/10/21 00:24 Home Meds: Home Meds Pnv,Calcium 72/Iron,Carb/Folic [ Plus Iron Tablet] 1 tab PO DAILY 05/29/20 [History] Ferrous Sulfate [Iron] 325 mg PO DAILY 10/08/20 [History] Ascorbate Calcium [Vitamin C] 500 mg PO DAILY 11/09/20 [History] Past Medical History - Past Health History Medical/Surgical History: Denies Medical/Surgical History HEENT 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: Impaired Vision Cardiovascular 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: None Respiratory 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: None Gastrointestinal 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: None Genitourinary 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: STD, UTI, Recurrent RESEARCH PHARMACIST 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: , Therapeutic , Other (See Below) Other RESEARCH PHARMACIST History: labor Musculoskeletal 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: Other (See Below) Other Musculoskeletal History: LEFT shoulder rotator cuff. hx hand fx Neurological 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: None Psychiatric 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: Anxiety, Bipolar, Depression, PTSD, Suicide Attempt Endocrine/Metabolic 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: Diabetes, Gestational Hematologic 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: Anemia Immunologic 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: None Oncologic (Cancer) 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: None Dermatologic 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: None - Infectious Disease History Infectious Disease 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: None - Past Surgical History Head Surgeries/Procedures: Reports: None HEENT Surgical 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: Oral Surgery Cardiovascular Surgical 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: None Respiratory Surgical 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: None Female Surgical 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: Dilitation & Evacuation - History Comment History Comment: Has a PMH of obesity, bipolar disorder, and PTSD. Social & Family History - Family History Family Medical History: No Pertinent Family History - Caffeine Use Caffeine Use: Reports: Coffee, Soda - Living Situation & Occupation Living situation: Reports: with Family, Single Occupation: Student ED ROS GENERAL - Review of Systems Review Of Systems: Comprehensive ROS is negative, except as noted in HPI. ED EXAM, BEHAVIORAL HEALTH - Physical Exam Exam: See Below Exam Limited By: Altered Mental Status General Appearance: Alert, Moderate Distress, Obese Eye Exam: Bilateral Eye: EOMI, Normal Inspection, PERRL Ears: Normal External Exam, Normal Canal, Hearing Grossly Normal, Normal TMs Nose: Normal Inspection, Normal Mucosa, No Blood Throat/Mouth: Normal Inspection, Normal Lips, Normal Teeth, Normal Gums, Normal Oropharynx, Normal Voice, No Airway Compromise Head: Atraumatic, Normocephalic Neck: Normal Inspection, Supple, Non-Tender, Full Range of Motion Respiratory/Chest: No Respiratory Distress Cardiovascular: Normal Peripheral Pulses, Regular Rate, Rhythm, No Edema, No Gallop, No JVD, No Murmur, No Rub GI/Abdominal: Normal Bowel Sounds, Soft, No Organomegaly, No Distention, No Abnormal Bruit, No Mass, Pelvis Stable (Female) Exam: Deferred Rectal (Female) Exam: Deferred Back Exam: Normal Inspection, Full Range of Motion, NT Extremities: Normal Inspection, Normal Range of Motion, Non-Tender, Normal Capillary Refill, No Pedal Edema Neurological: Alert Psychiatric: Depressed Mood, Flat Affect, Poor Eye Contact Skin Exam: Warm, Dry, Intact, Normal color, No rash #1 Interpretation EKG Date: 04/10/21 Time: 00:36 Rhythm: NSR Rate (Beats/Min): 77 [place]: Normal P-Wave: Present QRS: Normal ST-T: Normal QT: Normal Comparison: NA - No Prior EKG COURSE, BEHAVIORAL HEALTH COMP - Course Vital Signs: Last Vital Signs Temp 97.1 F 04/10/21 03:12 Pulse 71 04/10/21 03:12 Resp 19 04/10/21 03:12 BP 101/66 04/10/21 03:12 Pulse Ox 97 04/10/21 03:12 Orders, Labs, Meds: Active Orders 24 hr Category Date Time Status Suicide Precautions [RC] .Per Facility Policy Care 04/10/21 00:58 Active Acetylcysteine [Acetadote 20%] 15,000 mg Med 04/10/21 03:31 Ordered Dextrose 5% in Water 200 ml IV STAT Medication Orders Acetylcysteine 15,000 mg/ (Dextrose/Water) 275 mls @ 200 mls/hr IV STAT STA; Protocol Stop: 04/10/21 04:53 Laboratory Tests 04/09/21 04/09/21 04/09/21 Range/Units 23:10 23:10 23:10 WBC 12.3 H (5.0-10.0) 10^3/uL RBC 4.96 (4.2-5.4) 10^6/uL Hgb 11.9 L D (12.0-16.0) g/dL Hct 37.4 (37.0-47.0) % MCV 75.4 L D (80-100) fL MCH 24.0 L (27.0-34.0) pg MCHC 31.8 L (33.0-35.0) g/dL Plt Count 433 D (150-450) 10^3/uL Neut % (Auto) 49.3 (42.2-75.2) % Lymph % (Auto) 38.7 (20.5-50.1) % [place] % (Auto) 6.9 (2-8) % Eos % (Auto) 4.7 H (1.0-3.0) % Baso % (Auto) 0.4 (0.0-1.0) % Sodium 141 (136-145) mmol/L Potassium 3.8 (3.5-5.1) mmol/L Chloride 107 (98-107) mmol/L Carbon Dioxide 23 (21-32) mmol/L Anion Gap 14.8 H (7-13) mEq/L BUN 15 (7-18) mg/dL Creatinine 0.75 (0.55-1.02) mg/dL Est Cr Clr Drug Dosing TNP Estimated GFR (MDRD) > 60 BUN/Creatinine Ratio 20.0 (No establ ref range) Glucose 173 H (70-99) mg/dL Lactic Acid 1.9 (0.4-2.0) mmol/L Calcium 8.8 (8.5-10.1) mg/dL Magnesium 1.9 (1.8-2.4) mg/dL Total Bilirubin 0.2 (0.2-1.0) mg/dL AST 20 (15-37) U/L ALT 45 (14-59) U/L Alkaline Phosphatase 99 (46-116) U/L Total Protein 7.2 (6.4-8.2) g/dL Albumin 3.8 (3.4-5.0) g/dL Globulin 3.4 Albumin/Globulin Ratio 1.1 Amylase 30 (25-115) U/L Lipase 75 (73-393) U/L Urine Color (YELLOW) Urine Appearance (CLEAR) Urine pH (5.0-9.0) Ur Specific [place] (1.005-1.030) Urine Protein (NEGATIVE) Urine Glucose (UA) (NEGATIVE) Urine Ketones (NEGATIVE) Urine Occult Blood (NEGATIVE) Urine Nitrite (NEGATIVE) Urine Bilirubin (NEGATIVE) Urine Urobilinogen (0.2-1.0) mg/dL Ur Leukocyte Esterase (NEGATIVE) Urine RBC (0-5) /HPF Urine WBC (0-5/HPF) /HPF Ur Epithelial Cells (NOT SEEN) /HPF Urine Bacteria (0-FEW/HPF) /HPF Urine HCG, Qual Salicylates (2.8-20(Therapeutic)) mg/dL Urine Opiates Screen (NEGATIVE) Ur Oxycodone Screen (NEGATIVE) Urine Methadone Screen (NEGATIVE) Acetaminophen > 300 H* (10-30 (Therapeutic)) ug/mL Ur Barbiturates Screen (NEGATIVE) U Tricyclic Antidepress (NEGATIVE) Ur Phencyclidine Scrn (NEGATIVE) Ur Amphetamine Screen (NEGATIVE) U Methamphetamines Scrn (NEGATIVE) Urine MDMA Screen (NEGATIVE) U Benzodiazepines Scrn (NEGATIVE) Urine Cocaine Screen (NEGATIVE) U Marijuana (THC) Screen (NEGATIVE) Ethyl Alcohol < 3 (0) mg/dL Influenza Type A RNA (NEGATIVE) Influenza Type B RNA (NEGATIVE) SARS-CoV-2 RNA (AMANDA) (NEGATIVE) 04/09/21 04/09/21 04/09/21 Range/Units 23:10 23:55 23:55 WBC (5.0-10.0) 10^3/uL RBC (4.2-5.4) 10^6/uL Hgb (12.0-16.0) g/dL Hct (37.0-47.0) % MCV (80-100) fL MCH (27.0-34.0) pg MCHC (33.0-35.0) g/dL Plt Count (150-450) 10^3/uL Neut % (Auto) (42.2-75.2) % Lymph % (Auto) (20.5-50.1) % [place] % (Auto) (2-8) % Eos % (Auto) (1.0-3.0) % Baso % (Auto) (0.0-1.0) % Sodium (136-145) mmol/L Potassium (3.5-5.1) mmol/L Chloride (98-107) mmol/L Carbon Dioxide (21-32) mmol/L Anion Gap (7-13) mEq/L BUN (7-18) mg/dL Creatinine (0.55-1.02) mg/dL Est Cr Clr Drug Dosing Estimated GFR (MDRD) BUN/Creatinine Ratio (No establ ref range) Glucose (70-99) mg/dL Lactic Acid (0.4-2.0) mmol/L Calcium (8.5-10.1) mg/dL Magnesium (1.8-2.4) mg/dL Total Bilirubin (0.2-1.0) mg/dL AST (15-37) U/L ALT (14-59) U/L Alkaline Phosphatase (46-116) U/L Total Protein (6.4-8.2) g/dL Albumin (3.4-5.0) g/dL Globulin Albumin/Globulin Ratio Amylase (25-115) U/L Lipase (73-393) U/L Urine Color Yellow (YELLOW) Urine Appearance Clear (CLEAR) Urine pH 6.0 (5.0-9.0) Ur Specific [place] >= 1.030 (1.005-1.030) Urine Protein Negative (NEGATIVE) Urine Glucose (UA) 250 H (NEGATIVE) Urine Ketones Trace H (NEGATIVE) Urine Occult Blood Trace-intact H (NEGATIVE) Urine Nitrite Negative (NEGATIVE) Urine Bilirubin Negative (NEGATIVE) Urine Urobilinogen 0.2 (0.2-1.0) mg/dL Ur Leukocyte Esterase Negative (NEGATIVE) Urine RBC 0-5 (0-5) /HPF Urine WBC 0-5 (0-5/HPF) /HPF Ur Epithelial Cells Few (NOT SEEN) /HPF Urine Bacteria Few (0-FEW/HPF) /HPF Urine HCG, Qual Negative Salicylates < 2.8 L (2.8-20(Therapeutic)) mg/dL Urine Opiates Screen (NEGATIVE) Ur Oxycodone Screen (NEGATIVE) Urine Methadone Screen (NEGATIVE) Acetaminophen (10-30 (Therapeutic)) ug/mL Ur Barbiturates Screen (NEGATIVE) U Tricyclic Antidepress (NEGATIVE) Ur Phencyclidine Scrn (NEGATIVE) Ur Amphetamine Screen (NEGATIVE) U Methamphetamines Scrn (NEGATIVE) Urine MDMA Screen (NEGATIVE) U Benzodiazepines Scrn (NEGATIVE) Urine Cocaine Screen (NEGATIVE) U Marijuana (THC) Screen (NEGATIVE) Ethyl Alcohol (0) mg/dL Influenza Type A RNA (NEGATIVE) Influenza Type B RNA (NEGATIVE) SARS-CoV-2 RNA (AMANDA) (NEGATIVE) 04/09/21 04/10/21 04/10/21 Range/Units 23:55 00:40 03:05 WBC (5.0-10.0) 10^3/uL RBC (4.2-5.4) 10^6/uL Hgb (12.0-16.0) g/dL Hct (37.0-47.0) % MCV (80-100) fL MCH (27.0-34.0) pg MCHC (33.0-35.0) g/dL Plt Count (150-450) 10^3/uL Neut % (Auto) (42.2-75.2) % Lymph % (Auto) (20.5-50.1) % [place] % (Auto) (2-8) % Eos % (Auto) (1.0-3.0) % Baso % (Auto) (0.0-1.0) % Sodium (136-145) mmol/L Potassium (3.5-5.1) mmol/L Chloride (98-107) mmol/L Carbon Dioxide (21-32) mmol/L Anion Gap (7-13) mEq/L BUN (7-18) mg/dL Creatinine (0.55-1.02) mg/dL Est Cr Clr Drug Dosing Estimated GFR (MDRD) BUN/Creatinine Ratio (No establ ref range) Glucose (70-99) mg/dL Lactic Acid (0.4-2.0) mmol/L Calcium (8.5-10.1) mg/dL Magnesium (1.8-2.4) mg/dL Total Bilirubin (0.2-1.0) mg/dL AST (15-37) U/L ALT (14-59) U/L Alkaline Phosphatase (46-116) U/L Total Protein (6.4-8.2) g/dL Albumin (3.4-5.0) g/dL Globulin Albumin/Globulin Ratio Amylase (25-115) U/L Lipase (73-393) U/L Urine Color (YELLOW) Urine Appearance (CLEAR) Urine pH (5.0-9.0) Ur Specific [place] (1.005-1.030) Urine Protein (NEGATIVE) Urine Glucose (UA) (NEGATIVE) Urine Ketones (NEGATIVE) Urine Occult Blood (NEGATIVE) Urine Nitrite (NEGATIVE) Urine Bilirubin (NEGATIVE) Urine Urobilinogen (0.2-1.0) mg/dL Ur Leukocyte Esterase (NEGATIVE) Urine RBC (0-5) /HPF Urine WBC (0-5/HPF) /HPF Ur Epithelial Cells (NOT SEEN) /HPF Urine Bacteria (0-FEW/HPF) /HPF Urine HCG, Qual Salicylates (2.8-20(Therapeutic)) mg/dL Urine Opiates Screen Negative (NEGATIVE) Ur Oxycodone Screen Negative (NEGATIVE) Urine Methadone Screen Negative (NEGATIVE) Acetaminophen 167 H* (10-30 (Therapeutic)) ug/mL Ur Barbiturates Screen Negative (NEGATIVE) U Tricyclic Antidepress Negative (NEGATIVE) Ur Phencyclidine Scrn Negative (NEGATIVE) Ur Amphetamine Screen Negative (NEGATIVE) U Methamphetamines Scrn Negative (NEGATIVE) Urine MDMA Screen Negative (NEGATIVE) U Benzodiazepines Scrn Positive H (NEGATIVE) Urine Cocaine Screen Negative (NEGATIVE) U Marijuana (THC) Screen Negative (NEGATIVE) Ethyl Alcohol (0) mg/dL Influenza Type A RNA Negative (NEGATIVE) Influenza Type B RNA Negative (NEGATIVE) SARS-CoV-2 RNA (AMANDA) Negative (NEGATIVE) 04/10/21 Range/Units 03:05 WBC (5.0-10.0) 10^3/uL RBC (4.2-5.4) 10^6/uL Hgb (12.0-16.0) g/dL Hct (37.0-47.0) % MCV (80-100) fL MCH (27.0-34.0) pg MCHC (33.0-35.0) g/dL Plt Count (150-450) 10^3/uL Neut % (Auto) (42.2-75.2) % Lymph % (Auto) (20.5-50.1) % [place] % (Auto) (2-8) % Eos % (Auto) (1.0-3.0) % Baso % (Auto) (0.0-1.0) % Sodium 139 (136-145) mmol/L Potassium 3.5 (3.5-5.1) mmol/L Chloride 106 (98-107) mmol/L Carbon Dioxide 23 (21-32) mmol/L Anion Gap 13.5 H (7-13) mEq/L BUN 12 (7-18) mg/dL Creatinine 0.71 (0.55-1.02) mg/dL Est Cr Clr Drug Dosing 113.73 Estimated GFR (MDRD) > 60 BUN/Creatinine Ratio 16.9 (No establ ref range) Glucose 162 H (70-99) mg/dL Lactic Acid (0.4-2.0) mmol/L Calcium 8.4 L (8.5-10.1) mg/dL Magnesium (1.8-2.4) mg/dL Total Bilirubin 0.2 (0.2-1.0) mg/dL AST 18 (15-37) U/L ALT 41 (14-59) U/L Alkaline Phosphatase 75 (46-116) U/L Total Protein 6.7 (6.4-8.2) g/dL Albumin 3.5 (3.4-5.0) g/dL Globulin 3.2 Albumin/Globulin Ratio 1.1 Amylase (25-115) U/L Lipase (73-393) U/L Urine Color (YELLOW) Urine Appearance (CLEAR) Urine pH (5.0-9.0) Ur Specific [place] (1.005-1.030) Urine Protein (NEGATIVE) Urine Glucose (UA) (NEGATIVE) Urine Ketones (NEGATIVE) Urine Occult Blood (NEGATIVE) Urine Nitrite (NEGATIVE) Urine Bilirubin (NEGATIVE) Urine Urobilinogen (0.2-1.0) mg/dL Ur Leukocyte Esterase (NEGATIVE) Urine RBC (0-5) /HPF Urine WBC (0-5/HPF) /HPF Ur Epithelial Cells (NOT SEEN) /HPF Urine Bacteria (0-FEW/HPF) /HPF Urine HCG, Qual Salicylates (2.8-20(Therapeutic)) mg/dL Urine Opiates Screen (NEGATIVE) Ur Oxycodone Screen (NEGATIVE) Urine Methadone Screen (NEGATIVE) Acetaminophen (10-30 (Therapeutic)) ug/mL Ur Barbiturates Screen (NEGATIVE) U Tricyclic Antidepress (NEGATIVE) Ur Phencyclidine Scrn (NEGATIVE) Ur Amphetamine Screen (NEGATIVE) U Methamphetamines Scrn (NEGATIVE) Urine MDMA Screen (NEGATIVE) U Benzodiazepines Scrn (NEGATIVE) Urine Cocaine Screen (NEGATIVE) U Marijuana (THC) Screen (NEGATIVE) Ethyl Alcohol (0) mg/dL Influenza Type A RNA (NEGATIVE) Influenza Type B RNA (NEGATIVE) SARS-CoV-2 RNA (AMANDA) (NEGATIVE) Medications Generic Name Dose Route Start Last Admin Trade Name Freq PRN Reason Stop Dose Admin Acetylcysteine 15,000 mg/ 275 mls @ 200 mls/hr 04/10/21 03:31 Dextrose/Water IV 04/10/21 04:53 STAT STA Protocol Discontinued Medications Generic Name Dose Route Start Last Admin Trade Name Freq PRN Reason Stop Dose Admin Charcoal 50 gm 04/09/21 22:55 04/09/21 23:15 Activated Charcoal/Water Susp 50 Gm/240 Ml Tube PO 04/09/21 22:56 50 gm ONETIME ONE Administration Re-Assessment/Re-Exam: Initial dosing of Acetylcysteine (15 g) was given over 1 hour and a second dose of Acetylcysteine (5 g) was started to be given over 4 hours prior to transport. Departure - Departure Time of Disposition: 03:53 Disposition: DC/Tfer to Acute Hospital 02 Condition: Serious Clinical Impression: Tylenol overdose Qualifiers: Encounter type: initial encounter Injury intent: intentional self-harm Qualified Code(s): T39.1X2A - Poisoning by 4-Aminophenol derivatives, intentional self-harm, initial encounter Suicidal overdose Qualifiers: Encounter type: initial encounter Qualified Code(s): T50.902A - Poisoning by unspecified drugs, medicaments and biological substances, intentional self-harm, initial encounter - Discharge Information *PRESCRIPTION DRUG MONITORING PROGRAM REVIEWED*: Not Applicable *COPY OF PRESCRIPTION DRUG MONITORING REPORT IN PATIENT ABBY: Not Applicable Forms: Interfacility Transfer EMTALA Care Plan Goals: Discussed the patient's history, examination, initial results and repeat results with Dr. Calle (Hospitalist with [facility] in [place]). Dr. Calle accepted the patient for continued evaluation and management as an inpatient at [facility] in [place]. The patient will be transported by [facility]. Sepsis Event Note (ED) - Focused Exam Vital Signs: Vital Signs Temp Pulse Resp BP BP Pulse Ox 04/10/21 03:12 97.1 F 71 19 101/66 97 04/10/21 02:16 73 17 114/79 98 04/10/21 01:00 76 25 H 110/68 99 04/10/21 00:00 87 20 133/88 100 04/09/21 23:00 97.5 F 86 15 123/78 - My Orders Last 24 Hours: My Active Orders 04/10/21 00:58 Suicide Precautions [RC] .Per Facility Policy 04/10/21 03:31 Acetylcysteine [Acetadote 20%] 15,000 mg Dextrose 5% in Water 200 ml IV STAT - Assessment/Plan Last 24 Hours: My Active Orders 04/10/21 00:58 Suicide Precautions [RC] .Per Facility Policy 04/10/21 03:31 Acetylcysteine [Acetadote 20%] 15,000 mg Dextrose 5% in Water 200 ml IV STAT
[2021-04-09 23:46] LABS: ANION GAP 14.8 mEq/L (7-13); CHLORIDE,CL 107 mmol/L (98-107); SODIUM,NA 141 mmol/L (136-145)
[2021-04-09 23:48] LABS: ACETAMINOPHEN > 300 ug/mL (10-30 (Therapeutic))
[2021-04-10 00:09] LABS: AMPHETAMINES,URINE NEGATIVE (NEGATIVE); BARBITURATES,URINE NEGATIVE (NEGATIVE); BENZODIAZEPINE,URINE POSITIVE (NEGATIVE); MDMA (ECSTASY), URINE NEGATIVE (NEGATIVE); METHADONE,URINE NEGATIVE (NEGATIVE); METHAMPHETAMINES,URINE NEGATIVE (NEGATIVE); OPIATES,URINE NEGATIVE (NEGATIVE); PHENCYCLIDINE,URINE NEGATIVE (NEGATIVE); TCA,URINE NEGATIVE (NEGATIVE)
[2021-04-10 00:10] LABS: OXYCODONE,URINE NEGATIVE (NEGATIVE)
[2021-04-10 01:33] LABS: CORONAVIRUS COVID-19 NAA NEGATIVE (NEGATIVE)
[2021-04-10] MEDS ORDERED: Acetylcysteine 15,000 MG in Dextrose 5% in Water 200 ML IV STA ×2 (03:31)
[2021-04-10 03:32] LABS: ANION GAP 13.5 mEq/L (7-13); CHLORIDE,CL 106 mmol/L (98-107); SODIUM,NA 139 mmol/L (136-145)
[2021-04-10] MEDS ORDERED: Acetylcysteine 5,000 MG in Dextrose 5% in Water 500 ML IV ONE ×2 (03:57)
[2021-04-10 04:04] VITALS: BP 91/50; PULSE 72
[2021-04-10] MEDS ORDERED: Metoclopramide 10 MG/2 ML SDV IVPUSH ONE (05:02)
== END 2021-04-10 05:39 ==
LOC: DL.ED 22:50
DX: T39.1X2A Poisoning by 4-Aminophenol derivatives, intentional self-harm, initial encounter (principal); Z20.822 Contact with and (suspected) exposure to COVID-19
CPT/HCPCS: 0240U; 36415; 80053; 80143; 80179; 80305; 80307; 81001; 81025; 82150; 83605; 83690; 83735; 85025; 93005; 96365; 96366; 96375; 99285; J0132; J2765; J7060

== ENCOUNTER 2021-08-22 14:03 | Emergency (ER) | payer MEDICAID ==
[2021-08-22 14:31] VITALS: BP 129/83; PULSE 87
[2021-08-22] MEDS ORDERED: Bacitracin Oint 1 GM U/D Packet TOP ONE (16:19)
== END 2021-08-22 16:29 | disposition home or self-care (01) ==
LOC: DL.ED 14:03
DX: S60.222A Contusion of left hand, initial encounter (principal); Z79.899 Other long term (current) drug therapy; Y04.0XXA Assault by unarmed brawl or fight, initial encounter
CPT/HCPCS: 73120-LT; 99283

== ENCOUNTER 2023-08-10 21:54 | Emergency (ER) | payer BC, MEDICAID ==
[2023-08-10 22:04] VITALS: BP 149/97; PULSE 104
[2023-08-10] MEDS: Ibuprofen 400 MG Tab PO ONE (22:19)
[2023-08-10] MEDS: Acetaminophen 500 MG Tab PO ONE (22:19)
== END 2023-08-10 23:27 | disposition home or self-care (01) ==
LOC: DL.ED 21:54
DX: S93.402A Sprain of unspecified ligament of left ankle, initial encounter (principal); Z79.899 Other long term (current) drug therapy; X50.1XXA Overexertion from prolonged static or awkward postures, initial encounter; Y93.44 Activity, trampolining
CPT/HCPCS: 73610; 73630; 99283; A9270

== ENCOUNTER 2024-07-16 16:58 | Emergency (ER) | payer BC, MEDICAID ==
[2024-07-16 17:34] LABS: BASOPHILS PERCENT AUTO 0.6 % (0.0-1.0); EOSINOPHILS PERCENT AUTO 2.1 % (1.0-3.0); HEMATOCRIT 28.6 % (37.0-47.0); HEMOGLOBIN 8.3 g/dL (12.0-16.0); LYMPHOCYTES PERCENT AUTO 12.7 % (20.5-50.1); MEAN CORPUSCULAR HEMOGLOBIN 17.6 pg (27.0-34.0); MEAN CORPUSCULAR VOLUME 60.7 fL (80-100); MONOCYTES PERCENT AUTO 15.7 % (2-8); NEUTROPHILS PERCENT AUTO 68.9 % (42.2-75.2); PLATELET COUNT,PLT 368 10^3/uL (150-450); RED BLOOD CELL COUNT 4.71 10^6/uL (4.2-5.4); WHITE BLOOD CELL COUNT,WBC 3.4 10^3/uL (5.0-10.0)
[2024-07-16 17:46] LABS: ALBUMIN 3.8 g/dL (3.4-5.0); ANION GAP 14.8 mEq/L (7-13); BILIRUBIN TOTAL 0.5 mg/dL (0.2-1.0); BUN/CREATININE RATIO 15.2 (No establ ref range); CALCIUM 9.1 mg/dL (8.5-10.1); CREATININE 0.92 mg/dL (0.55-1.02); EST CRCL DRUG DOSING (CG) 84.85 mL/min; POTASSIUM,K 3.8 mmol/L (3.5-5.1); PROTEIN TOTAL,TP 7.6 g/dL (6.4-8.2)
[2024-07-16] MEDS: Metoclopramide 10 MG/2 ML SDV IVPUSH ONE (17:52)
[2024-07-16] MEDS: diphenhydrAMINE 50 MG/ML SDV IVPUSH ONE (17:52)
[2024-07-16] MEDS: Ketorolac 30 MG/ML SDV IVPUSH ONE (17:59)
[2024-07-16] MEDS: Sodium Chloride 0.9% 2,000 ML IV SCH (18:00)
[2024-07-16] MEDS: Ondansetron 4 MG/2 ML SDV IVPUSH ONE (19:30)
[2024-07-16] MEDS: HYDROmorphone 1 MG/ML Syringe IVPUSH ONE (19:33)
[2024-07-16] MEDS: cefTRIAXone 1 GM Vial IVPUSH ONE (19:37)
[2024-07-16 20:04] LABS: LACTIC ACID 1.3 mmol/L (0.4-2.0)
[2024-07-16 21:29] LABS: APPEARANCE,URINE CLEAR (CLEAR); BILIRUBIN,URINE NEGATIVE (NEGATIVE); COLOR,URINE YELLOW (YELLOW); GLUCOSE,URINE NEGATIVE (NEGATIVE); KETONES,URINE NEGATIVE (NEGATIVE); LEUKOCYTE ESTERASE,URINE NEGATIVE (NEGATIVE); NITRITE,URINE NEGATIVE (NEGATIVE); OCCULT BLOOD,URINE SMALL (NEGATIVE); PH,URINE 5.5 (5.0-9.0); PROTEIN,URINE NEGATIVE (NEGATIVE); UROBILINOGEN,URINE 0.2 mg/dL (0.2-1.0)
[2024-07-16 21:47] VITALS: BP 124/76; PULSE 84
[2024-07-16 22:07] LABS: AMORPHOUS SEDIMENT,URINE FEW /HPF (NOT SEEN); BACTERIA,URINE FEW /HPF (0-FEW/HPF); EPITHELIAL CELLS,URINE FEW /HPF (NOT SEEN); MUCUS,URINE MODERATE /LPF (NOT SEEN); RBC,URINE 0-5 /HPF (0-5); WBC,URINE 0-5 /HPF (0-5/HPF)
[2024-07-16 22:09] LABS: GLUCOSE,CSF 81 mg/dL (40-70)
[2024-07-16 22:10] LABS: PROTEIN,CSF > 45 mg/dL (15-45)
== END 2024-07-16 21:50 ==
LOC: DL.ED 16:58
DX: R51.9 Headache, unspecified (principal); E86.0 Dehydration; D64.9 Anemia, unspecified; R50.9 Fever, unspecified; Z79.899 Other long term (current) drug therapy
CPT/HCPCS: 36415; 62270; 70450; 71045; 80053; 81001; 81025; 82550; 82945; 83605; 83735; 84145; 84157; 85025; 87040; 87070; 87205; 87428; 96361; 96374; 96375; 99285; J0696; J1171; J1200; J1885; J2405; J2765; J7030

== ENCOUNTER 2024-11-15 04:32 | Emergency (ER) | payer MEDICAID, OTHER ==
[2024-11-15] MEDS ORDERED: Sodium Chloride 0.9% 10 ML Syringe FLUSH PRN (04:59)
[2024-11-15 05:15] LABS: BASOPHILS PERCENT AUTO 0.2 % (0.0-1.0); EOSINOPHILS PERCENT AUTO 1.1 % (1.0-3.0); LYMPHOCYTES PERCENT AUTO 28.3 % (20.5-50.1); MONOCYTES PERCENT AUTO 9.0 % (2-8); NEUTROPHILS PERCENT AUTO 61.4 % (42.2-75.2); PLATELET COUNT,PLT 333 10^3/uL (150-450); RED BLOOD CELL COUNT 4.39 10^6/uL (4.2-5.4); WHITE BLOOD CELL COUNT,WBC 9.2 10^3/uL (5.0-10.0)
[2024-11-15 05:32] LABS: APPEARANCE,URINE SLIGHTLY CLOUDY (CLEAR); GLUCOSE,URINE NEGATIVE (NEGATIVE); OCCULT BLOOD,URINE NEGATIVE (NEGATIVE)
[2024-11-15 05:37] LABS: ALANINE AMINOTRANSFERASE,ALT 15 U/L (14-59); ASPARTATE AMNIOTRANSFERASE,AST 15 U/L (15-37); BILIRUBIN TOTAL 0.2 mg/dL (0.2-1.0); BLOOD UREA NITROGEN,BUN 8 mg/dL (7-18); CARBON DIOXIDE,CO2 25 mmol/L (21-32); CHLORIDE,CL 110 mmol/L (98-107); CREATININE 0.83 mg/dL (0.55-1.02); EST CRCL DRUG DOSING (CG) 94.05 mL/min; GLUCOSE RANDOM 122 mg/dL (70-99); POTASSIUM,K 4.2 mmol/L (3.5-5.1); PROTEIN TOTAL,TP 6.3 g/dL (6.4-8.2); SODIUM,NA 142 mmol/L (136-145)
[2024-11-15 05:38] LABS: AMPHETAMINES,URINE NEGATIVE (NEGATIVE); BARBITURATES,URINE NEGATIVE (NEGATIVE); MDMA (ECSTASY), URINE NEGATIVE (NEGATIVE); METHAMPHETAMINES,URINE NEGATIVE (NEGATIVE); OPIATES,URINE NEGATIVE (NEGATIVE); OXYCODONE,URINE NEGATIVE (NEGATIVE); PHENCYCLIDINE,URINE NEGATIVE (NEGATIVE); TCA,URINE NEGATIVE (NEGATIVE)
[2024-11-15 05:40] LABS: EPITHELIAL CELLS,URINE MANY /HPF (NOT SEEN)
[2024-11-15 05:41] LABS: A/G RATIO 0.80; ESTIMATED GFR 101 mL/min (>=60); ETHANOL BLOOD MEDICAL < 3 mg/dL (0)
[2024-11-15 06:19] VITALS: BP 113/73; PULSE 92
[2024-11-18 12:46] LABS: C.TRACHOMATIS BY TMA Negative (Negative); N.GONORRHOEAE BY TMA Negative (Negative)
== END 2024-11-15 06:17 | disposition home or self-care (01) ==
LOC: DL.ED 04:32
DX: O20.9 Hemorrhage in early pregnancy, unspecified (principal); E66.9 Obesity, unspecified; Z79.899 Other long term (current) drug therapy; Z3A.18 18 weeks gestation of pregnancy; Z68.38 Body mass index [BMI] 38.0-38.9, adult
CPT/HCPCS: 36415; 76815; 80053; 80305-QW; 80307; 81001; 83735; 84702; 85025; 87086; 87491; 87591; 99284